=== PATIENT | female | born 1960 | race Caucasian/White ===

== ENCOUNTER 2020-03-26 21:56 | Emergency (ER) | payer OTHER ==
[~2020-03-26] VITALS: Ht 165.1 cm; Wt 101.2 kg
[2020-03-26 22:14] VITALS: BP 118/76
--- NOTE | 2020-03-26 22:19 | NUR ---
PT TAKEN TO BED 04 WITH STEADY GAIT.
[2020-03-26] MEDS ORDERED: HYDROcodone/APAP 5/325 MG 1 TAB TAB PO ONE (22:30)
[2020-03-26] MEDS ORDERED: PROCHLORPERAZINE 5 MG TAB PO ONE (22:30)
--- NOTE | 2020-03-26 22:55 | NUR ---
60 YEAR OLD FEMALE COMPLAINS OF TOOTH PAIN IN RIGHT SIDE. PT STATES PAIN OCCURED ABOUT WEEK AGO, NO TRAUMA. PT AOX4, BREATHING EVEN AND UNLABORED, SKIN WARM AND DRY. BED IN LOWEST POSITION, LOCKED, BED RAIL UPX1. PMH - DENIES ALLERGIES - NKA
--- NOTE | 2020-03-26 22:57 | NUR ---
PT STATES SHE DOES NOT WANT TO WAIT FOR MEDS TO WORK OR SIDE EFFECTS, UNDERSTANDS RISKS.
--- NOTE | 2020-03-26 22:58 | NUR ---
Patient discharged with v/s stable. Written and verbal after care instructions about abscessed tooth given and explained. Patient alert, oriented and verbalized understanding of instructions. Ambulatory with steady gait. All questions addressed prior to discharge. ID band removed. Patient advised to follow up with PMD. Rx of augmentin, prednisone given. Patient educated on indication of medication including possible reaction and side effects. Opportunity to ask questions provided and answered.
== END 2020-03-26 22:58 | disposition home or self-care (01) ==
LOC: MED 21:56
DX: K08.89 Other specified disorders of teeth and supporting structures (principal)
CPT/HCPCS: 99283; Q0164

== ENCOUNTER 2020-06-17 15:54 | Emergency (ER) | payer OTHER ==
[~2020-06-17] VITALS: Ht 165.1 cm; Wt 98.0 kg
[2020-06-17 16:02] VITALS: BP 125/73
[2020-06-17] MEDS ORDERED: KETOROLAC 60 MG/2 ML VIAL IM ONE (16:15)
[2020-06-17 16:45] VITALS: BP 125/73
== END 2020-06-17 16:45 | disposition home or self-care (01) ==
LOC: MED 15:54
DX: K08.89 Other specified disorders of teeth and supporting structures (principal); M19.90 Unspecified osteoarthritis, unspecified site
CPT/HCPCS: 96372; 99283; J1885

== ENCOUNTER 2022-01-30 08:54 | Emergency (ER) | payer OTHER ==
[~2022-01-30] VITALS: Ht 165.1 cm; Wt 88.0 kg
[2022-01-30 09:01] VITALS: BP 151/76
[2022-01-30] MEDS ORDERED: NACL 0.9% 1,000 ML IV SCH (09:15)
[2022-01-30] MEDS ORDERED: ONDANSETRON 4 MG/2 ML VIAL IVP ONE (09:15)
[2022-01-30] MEDS ORDERED: KETOROLAC 30 MG/ML VIAL IVP ONE (09:15)
--- NOTE | 2022-01-30 09:20 | NUR ---
61 Y/O FEMALE C/O DIZZINESS SINCE YESTERDAY MORNING, REPORTS NAUSEA TODAY. DENIES HEADACHE OR VISION CHANGES. PT DENIES CHEST PAIN, SOB. LUNGS CTA. PT DENIES FEVER OR CHILLS. BED LOCKED IN LOWEST POSITION, BED RAIL X1. PMH: ARTHRITIS NKA
--- NOTE | 2022-01-30 09:22 | NUR ---
LAB AT PT BEDSIDE
[2022-01-30 09:31] LABS: BASOPHILS % (AUTO) 0.5 % (0.0-2.0); EOSINOPHILS # (AUTO) 0.1 K/uL (0-0.4); EOSINOPHILS % (AUTO) 2.8 % (0.0-4.0); HEMATOCRIT 38.6 % (36-48); HEMOGLOBIN 13.3 g/dL (12.0-16.0); LYMPHOCYTES # (AUTO) 1.5 K/uL (2.5-16.5); LYMPHOCYTES % (AUTO) 47.8 % (20.5-51.1); MEAN CORPUSCULAR HEMOGLOBIN 32 pg (27-31); MEAN CORPUSCULAR HGB CONC 34 g/dL (33-37); MEAN CORPUSCULAR VOLUME 91.6 fL (80-94); MONOCYTES # (AUTO) 0.3 K/uL (0.8-1.0); NEUTROPHILS # (AUTO) 1.3 K/uL (1.8-7.7); NEUTROPHILS % (AUTO) 40.9 % (42.2-75.2); PLATELET COUNT (AUTO) 120 K/uL (140-450); RED BLOOD CELL COUNT(AUTO) 4.22 MIL/uL (4.20-5.40); RED CELL DISTRIBUTION WIDTH 13.7 % (11.6-13.7); WHITE BLOOD COUNT (AUTO) 3.2 K/uL (4.8-10.8)
--- NOTE | 2022-01-30 09:47 | NUR ---
XR AT PT BEDSIDE
[2022-01-30 10:17] LABS: ALBUMIN 2.8 g/dL (3.4-5.0); ANION GAP 9.5 (8-16); ASPARTATE AMINOTRANSFERASE 41 U/L (15-37); CARBON DIOXIDE 29.2 mmol/L (21-32); CHLORIDE 104 mmol/L (98-107); CREATININE 0.7 mg/dL (0.6-1.3); GFR ARICAN-AMERICAN 110 mL/min (>90); GLUCOSE 86 mg/dL (74-106); POTASSIUM 3.7 mmol/L (3.5-5.1); SODIUM SERUM 139 mmol/L (136-145); TOTAL BILIRUBIN 0.5 mg/dL (0.0-1.0); UREA NITROGEN, BLOOD 13 mg/dL (7-18)
[2022-01-30] MEDS ORDERED: MECL-303 PO (11:26)
[2022-01-30 11:40] VITALS: BP 151/76
== END 2022-01-30 11:41 | disposition home or self-care (01) ==
LOC: MED 08:54
DX: B34.9 Viral infection, unspecified (principal); R42 Dizziness and giddiness
CPT/HCPCS: 36415; 71045; 80053; 84484; 85025; 93005; 96361; 96374; 96375; 99285; J1885; J2405; J7030; Q0092

== ENCOUNTER 2022-05-08 08:33 | Emergency (ER) | payer OTHER ==
[~2022-05-08] VITALS: Ht 165.1 cm; Wt 89.5 kg
[~2022-05-08 08:33] MED LIST: MECL-303 PO
[2022-05-08 08:49] VITALS: BP 90/59
--- NOTE | 2022-05-08 08:56 | NUR ---
PATIENT AMBULATED TO BED 11.
[2022-05-08] MEDS ORDERED: NAPR-1704 PO (09:09)
[2022-05-08] MEDS ORDERED: CEPH500T PO (09:09)
[2022-05-08] MEDS ORDERED: LIDOCAINE MPF 1% 10 MG/ML VIAL INJ ONE (09:10)
--- NOTE | 2022-05-08 09:43 | NUR ---
62 y/o female, c/o right lower quadrant pain, redness and tender with palpation in relation to abscess for 1 week. pt states area has progressively gotten worse. states it initially started as pimple that she was trying to pop, but was unable to drain anything. a&ox4, ambulates with steady gait. denies cough, fever, chills, sob or cp. pmh: gastric bypass, arthritis nka
--- NOTE | 2022-05-08 09:47 | NUR ---
pt placed on 2L nc for saturation of 90% on ra at this time. pt has bp reading of 52/26 at this time after switching bp cuff to other arm. matt gomez notified at this time
--- NOTE | 2022-05-08 10:30 | NUR ---
gauze strip placed in wound by matt gomez, dressed with non adherent at this time
[2022-05-08 10:32] VITALS: BP 90/59
--- NOTE | 2022-05-08 10:55 | NUR ---
Patient discharged with v/s stable. Written and verbal after care instructions given and explained. Patient alert, oriented and verbalized understanding of instructions. Ambulatory with steady gait. All questions addressed prior to discharge. ID band removed. Patient advised to follow up with PMD. Rx of naproxen, cephalexin (sent) given. Patient educated on indication of medication including possible reaction and side effects. Opportunity to ask questions provided and answered.
== END 2022-05-08 10:55 | disposition home or self-care (01) ==
LOC: MED 08:33
DX: L02.211 Cutaneous abscess of abdominal wall (principal); M19.90 Unspecified osteoarthritis, unspecified site; Z90.49 Acquired absence of other specified parts of digestive tract
CPT/HCPCS: 10060; 90471; 90715; 99284; J2001